=== PATIENT | male | born 1960 | race Caucasian/White ===

== ENCOUNTER 2019-05-19 20:38 | Emergency (ER) | payer OTHER, SELFPAY ==
[2019-05-19 20:41] VITALS: BP 149/88; PULSE 95; RESP 16; TEMP 36.6; O2SAT 97
--- NOTE | 2019-05-19 20:54 | ED.GENADUL_ITS ---
Discharge Plan Disposition Patient Disposition: HOME Condition: Stable Discharge Details Chief Complaint: RashLesion Clinical Impression: Tinea cruris Primary Care Provider: Samina Cruz ED Provider: Serjio Monae Home Meds and New Rx's Prescriptions: No Action No Known Home Meds RF: 0 Discharge Instructions Instructions: Lavon Itch (ED) Additional Instructions: start taking over the counter clotrimazole (Lotrimin) or terbinafine, follow dosing on packaging if not better in a week see your primary care provider return to the emergency department if you develop severe worsening pain, fevers or redness that is spreading down the leg Medical Decision Making 58 yo male who denies chronic medical problems comes in with several days of left groin irritation. He states he was driving for over a week and denies having symptoms like this in the past and denies fevers or severe pain. In the left groin area he has a mildly erythematous patch on proximal medial thigh near the groin fold that is about 2cm in diameter that is sharlply demarcated and partial celtral clearing. Appears to be tinea. Not warm to touch so doubt cellulitis. Advised f/u with pcp if not improving and return if worsening/signs of cellulitis develop Differential Diagnosis Differential Diagnosis: tinea cruris, skin irritation, cellulitis HPI General Mode of arrival: ambulatory . Date/Time Provider Initiated Documentation: 05/19/19 20:43 . Limitations to Documentation: no limitations . Information obtained by: patient . History of Present Illness 58 year old M presents to the emergency department with the chief complaint of left groin area discomfort/itching, described as moderate, Quality is described as other (itching), Patient started experiencing this day(s) (1) No relieving factors improve symptom(s), No exacerbating factors reported . Patient did receive the following treatments prior to arrival, none Related Data Home Medications Medication Instructions Recorded Confirmed Unknown [No Known Home Meds] 05/19/19 05/19/19 Allergies Allergy/AdvReac Type Severity Reaction Status Date / Time No Known Allergies Allergy Unverified 05/19/19 20:44 General Stated Complaint: RashLesion JAYLENE: 5 Review of Systems Review of Systems ROS Unobtainable: All systems reviewed & are unremarkable except as noted in HPI and below Constitutional Constitutional: Denies chills, Denies fever(s) and Denies weakness Cardiovascular Cardiovascular: Denies chest pain and Denies dyspnea Respiratory Respiratory: Denies dyspnea Gastrointestinal Gastrointestinal: Denies abdominal pain, Denies nausea and Denies vomiting Neurologic Neurologic: Denies weakness [facility] Social History Smoking/Tobacco Use Status: Never Alcohol Intake: current Alcohol Intake frequency: 0-2 drinks per day Alcohol type: beer Drug use: Never Substance use type: does not use Do you feel safe at home: Yes Do you feel safe in your relationship?: Yes Exam Const General: no acute distress Orientation: alert HENMT Head: normal to inspection Ears: external ears normal General nose exam: external nose normal Mouth: moist mucous membranes Eyes General: appearance normal, both eyes and all related structures Neck Neck: normal visual inspection Resp Effort & Inspection: normal respiratory effort and able to speak in complete sentences Cardio Rate: regular rate Skin General skin exam: elasticity normal Neuro General: alert and oriented x3 Extrem General: normal to inspection Psych Mental Status: mental status grossly normal Course Vital Signs Vital signs: Vital Signs Temperature 36.6 C 05/19/19 20:41 Pulse 95 H 05/19/19 20:41 Respiratory Rate 16 05/19/19 20:41 Blood Pressure 149/88 H 05/19/19 20:41 Pulse Oximetry 97 05/19/19 20:41 Temperature 36.6 C 05/19/19 20:41 Temperature Source Skin 05/19/19 20:41 Pulse 95 H 05/19/19 20:41 Respiratory Rate 16 05/19/19 20:41 Respiratory Effort 05/19/19 20:47 Blood Pressure 149/88 H 05/19/19 20:41 Blood Pressure Position Sitting 05/19/19 20:41 Pulse Oximetry 97 05/19/19 20:41 Oxygen Delivery Method Room Air 05/19/19 20:41 Oxygen Flow Rate 0 05/19/19 20:41 Pain Level 1 05/19/19 20:41
== END 2019-05-19 21:30 | disposition home or self-care (01) ==
LOC: ER 20:56
PROVIDERS: Emergency Provider Emergency Medicine; PCP Family Medicine
DX: B35.6 Tinea cruris (principal)
CPT/HCPCS: 99282

== ENCOUNTER 2020-03-07 13:22 | Emergency (ER) | payer OTHER, SELFPAY ==
[2020-03-07 13:39] VITALS: BP 163/84; PULSE 89; RESP 16; TEMP 36.4; O2SAT 98
--- NOTE | 2020-03-07 13:42 | ED.GENADUL_ITS ---
Discharge Plan Disposition Patient Disposition: HOME Condition: Good Discharge Details Chief Complaint: DentalOral Clinical Impression: Acute pulpitis, Pain, dental Primary Care Provider: Samina Cruz ED Provider: Ramiro Bell Home Meds and New Rx's Prescriptions: New penicillin V potassium 500 mg tablet 500 mg PO QID 10 Days Qty: 40 RF: 0 Discharge Instructions Instructions: Toothache (ED) Additional Instructions: At this time you have a mild infection of your right upper molar. You do need to see a dentist as soon as possible. Please take the antibiotic as directed. Please take 1000 mg of Tylenol every 6 hours and 800 mg of ibuprofen every 6 hours to help with pain. These are the maximum doses. If you notice any worsening of your symptoms, or any new symptoms such as vomiting, diarrhea, fever, chills, shortness of breath, chest pain, numbness, weakness, or fainting , please return immediately to the emergency department for reevaluation. Please follow up with your primary care provider as soon as possible for reassessment and reevaluation. As always, it was a pleasure participating in your medical care today. Referrals: Samina Cruz [Primary Care Provider] - Discharge Data Discharge Date/Time-TO BE ENTERED AT DEPARTURE: 03/07/20 13:48 Medical Decision Making Very pleasant 59-year-old male who denies any significant past medical history who presents today for evaluation of dental pain. Patient states he has a history of fillings, no over the last few days he has had pain in his right upper posterior molars. He was originally scheduled to see his dentist in December but because of coronavirus this got postponed. He has not yet been able to follow-up with a dentist. He denies fever or chills. Pain slightly relieved with Tylenol Motrin. He denies headache neck pain difficulty swallowing or other complaints. No evidence of periapical abscess, or other abnormalities. No evidence of Robert's angina. Suspect mild pulpitis. Patient will be trying to follow-up closely with his dentist. Will prescribe penicillin antibiotic for mild suspect infection. Patient refused dental block. Recommend continuation with Tylenol and Motrin at home. Discussed red flags for which to return. I have extensively reviewed the treatment plan and discharge instructions with the patient. I have addressed all patient concerns at this time. The patient was made aware of what symptoms to monitor for that would warrant a return to the emergency department. Discussed the plan with the patient, they demonstrate verbal understanding and agreement with our assessment and plan at this time. HPI General Date/Time Provider Initiated Documentation: 03/07/20 13:34 . HPI Narrative: Very pleasant 59-year-old male who denies any significant past medical history who presents today for evaluation of dental pain. Patient states he has a history of fillings, no over the last few days he has had pain in his right upper posterior molars. He was originally scheduled to see his dentist in December but because of coronavirus this got postponed. He has not yet been able to follow-up with a dentist. He denies fever or chills. Pain slightly relieved with Tylenol Motrin. He denies headache neck pain difficulty swallowing or other complaints. Related Data Home Medications Medication Instructions Recorded Confirmed penicillin V potassium 500 mg PO QID 10 Days #40 tab 03/07/20 Previous Rx's Medication Instructions Recorded penicillin V potassium 500 mg PO QID 10 Days #40 tab 03/07/20 Allergies Allergy/AdvReac Type Severity Reaction Status Date / Time No Known Allergies Allergy Unverified 05/19/19 20:44 General Stated Complaint: DentalOral JAYLENE: 4 Review of Systems All systems reviewed & are unremarkable except as noted in HPI and below PFS Social History Smoking/Tobacco Use Status: Never Alcohol Intake: current Alcohol Intake frequency: 0-2 drinks per day Alcohol type: beer Drug use: Never Substance use type: does not use Do you feel safe at home: Yes Do you feel safe in your relationship?: Yes Exam Narrative Exam Narrative: 1.Const: Well-nourished, Well-developed, appearing stated age 2.Eyes: PERRL, no conjunctival injection, and symmetrical lids. 3.ENT: Atraumatic external nose and ears. Moist MM. Neck: Symmetric, trachea midline, No thyromegaly. Mild dental caries and fillings throughout. No periapical abscess, no pain or tenderness over the teeth. 4.CVS: +S1/S2, No murmurs or gallops. Peripheral pulses 2+ and equal in all extremities. Brisk capillary refill in all extremities. 5.RESP: Unlabored respiratory effort. Clear to auscultation bilaterally. No wheezes rales or rhonchi 6.GI: Soft, Nontender/Nondistended, No hepatosplenomegaly. No guarding or rebound. 7.MSK: Normocephalic/Atraumatic, Extremities w/o deformity or ttp No cyanosis or clubbing, Normal movement of all extremities 8.Skin: Warm, Dry. No rashes or lesions. 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 Sensation grossly intact, no focal neurologic deficits. 10.Psych: (AAO) x3. Appropriate mood and affect Course Vital Signs Vital signs: Vital Signs Temperature 36.4 C L 03/07/20 13:39 Pulse 89 03/07/20 13:39 Respiratory Rate 16 03/07/20 13:39 Blood Pressure 163/84 H 03/07/20 13:39 Pulse Oximetry 98 03/07/20 13:39 Temperature 36.4 C L 03/07/20 13:39 Temperature Source Skin 03/07/20 13:39 Pulse 89 03/07/20 13:39 Respiratory Rate 16 03/07/20 13:39 Respiratory Effort Non-Labored 03/07/20 13:39 Blood Pressure 163/84 H 03/07/20 13:39 Blood Pressure Position Sitting 03/07/20 13:39 Pulse Oximetry 98 03/07/20 13:39 Oxygen Delivery Method Room Air 03/07/20 13:39 Oxygen Flow Rate 0 03/07/20 13:39
== END 2020-03-07 13:48 | disposition home or self-care (01) ==
PROVIDERS: Emergency Provider Student in an Organized Health Care Education/Training Program; PCP Family Medicine
DX: R68.84 Jaw pain (principal); K04.01 Reversible pulpitis
CPT/HCPCS: 99283

== ENCOUNTER 2020-07-31 21:35 | Outpatient (REF) | payer OTHER, SELFPAY ==
[2020-07-31 21:10] LABS: ALT 40 U/L (16-63); AST 20 U/L (15-37); Albumin 4.2 g/dL (3.4-5.0); Alkaline Phosphatase 74 U/L (46-116); Anion Gap 7.1 mmol/L (3-11); BUN 20 mg/dL (7-18); Bilirubin, Total 0.5 mg/dL (0.2-1.0); CO2 26.9 mmol/L (21.0-32.0); Calcium 8.6 mg/dL (8.5-10.1); Calculated LDL 89 mg/dL (<100); Chloride 107 mmol/L (98-107); Cholesterol 156 mg/dL (<200); Glucose 99 mg/dL (74-106); HDL Cholesterol 55 mg/dL (40-60); Potassium 4.3 mmol/L (3.5-5.1); Sodium 141 mmol/L (136-145); Total Protein 6.6 g/dL (6.4-8.2); Triglyceride 64 mg/dL (<150)
[2020-07-31 21:16] LABS: Hemoglobin A1C 5.5 % (<5.7)
[2020-08-03 10:04] LABS: PSA, Screening 0.7 ng/mL (0.0-4.5)
== END 2020-07-31 21:55 ==
LOC: NCHCN 21:35
PROVIDERS: PCP Family Medicine; Visit Provider Urology
DX: Z00.00 Encounter for general adult medical examination without abnormal findings (principal); R73.03 Prediabetes; Z13.220 Encounter for screening for lipoid disorders; Z12.5 Encounter for screening for malignant neoplasm of prostate
CPT/HCPCS: 80053; 80061; 84153; 83036

== ENCOUNTER 2020-10-26 08:12 | Day surgery (SDC) | payer OTHER, SELFPAY ==
--- NOTE | 2020-10-26 06:36 | COLE_ITS ---
Date of service: 10/26/20 Time of Service: 09:41 Colonoscopy Report Date of procedure: 10/26/20 Pre-op diagnosis general: Colon Cancer Screening Post-op diagnosis procedure note: same Procedure: Colonoscopy Surgeon: Luisa Lazcano Anesthesia proc note operative: other (General/ASA 2/Fernando Tirado, DANIELITO) Estimated blood loss (mL): 0 Pathology: none sent Complications: None Disposition: same day Indications: The patient is here for Colonoscopy pre-op. His last screening was in 2009 and was unremarkable. He has no family history of colon cancer. He has not had any bowel habit changes. -Discussed colonoscopy bowel prep as well as the procedure. Discussed possible complications of the procedure to include bleeding, pain, perforation, missed small lesion/polyp, sore throat, aspiration and adverse reaction to the medicat ions. Questions were answered to patient?s satisfaction. No guarantees were implied or given. Prep: Miralax/Dulcolax Procedure Start Time: 09:15 Procedure End Time: 09:38 Retraction Time: 17 minutes Findings: Normal colon Procedure Description: After informed consent was obtained the patient was taken to the procedure room and placed in a left decubitous position. Monitors were applied and a time out was done. The patients name, date of , procedure, allergies to medications and metal in their body was reviewed. The patient was then sedated. Once sedated and comfortable a rectal exam was done. External exam was normal. Internal exam revealed a normal sphincter tone and no palpable masses. The prostate felt smooth and slightly enlarged. The scope was then introduced and retro-flexed. No internal hemorrhoids, polyps or masses were identified on retro-flexion. The scope was then advanced to the cecum without difficulty. The ileocecal vlave and appendiceal orifice were identified. The prep was adequate. The scope was then slowly retracted over 17 minutes back into the rectum. There were no polyps. There was no diverticulosis noted. The scope was removed and the patient was woken up and taken back to Same day surgery in stable condition. The patient tolerated the procedure well and there were no immediate complications. Follow up: The patient should follow up in 10 years unless they develop changes in bowel habits or other new gastrointestinal complaints.
--- NOTE | 2020-10-26 06:37 | W.PM.DSUDISC ---
Discharge Plan Disposition Patient Disposition: HOME Condition: Good Discharge Details Reason For Visit: Colonoscopy Attending Provider: Luisa Lazcano Primary Care Provider: Samina Cruz Home Meds and New Rx's Prescriptions: Continued cholecalciferol (vitamin D3) 25 mcg (1,000 unit) capsule 25 mcg PO DAILY RF: 0 Discontinued polyethylene glycol 3350 17 gram/dose powder 238 g PO ONCE Qty: 238 RF: 0 bisacodyl [Dulcolax (bisacodyl)] 5 mg tablet,delayed release (DR/EC) 5 mg PO ONCE Qty: 4 RF: 0 Discharge Instructions Additional Instructions: Findings: Normal colonoscopy Follow up: 10 years Please call if you develop: fevers >101.5 Nausea or Vomiting Abdominal pain that is not transient DAY SURGERY UNIT POST ENDOSCOPY INSTRUCTIONS 1. Because there will be medication in your system for the next 24 hours, you may feel a little sleepy. Your coordination will be affected. Therefore: a. Do not drive or operate dangerous equipment for 24 hours. b. Do not drink alcohol beverages for 24 hours (not even beer). c. Plan to go home and rest for the day. 2. Generally there are no restrictions on your activity after a day or so has gone by, but you may feel a bit fatigued for a few days. 3 After you arrive home you may have a light meal and return to a normal diet as you can tolerate it without feeling sick to your stomach. 4. After surgery, you may feel pain or discomfort. This should be only transient, but if it persists please contact your doctor. 5. If there are any questions regarding the findings of your procedure, please feel free to contact your doctor. 6. If you are unable to contact your doctor with a problem, contact the hospital at [phone]. 7. Continue all your regular medications unless directed otherwise. I understand the above instructions and have no questions. Signature of Patient or Responsible Adult Escort Date/Time Name of Responsible Adult Escort Signature of Nurse Date/Time Activity:: Activity as Tolerated Diet:: As Tolerated Discharge Orders Discharge Orders: Discharge Order (Routine); Ordered 10/26/20 Ordered By: Luisa Lazcano
[2020-10-26 08:32] VITALS: BP 122/84; PULSE 104; RESP 16; TEMP 36.1; O2SAT 97
[2020-10-26] MEDS: Lactated Ringers 1,000 ML 80 ML IV (08:47)
[2020-10-26 10:11] VITALS: BP 117/78; PULSE 77; RESP 16; TEMP 36; O2SAT 98
== END 2020-10-26 10:25 | disposition home or self-care (01) ==
PROVIDERS: PCP Family Medicine; Visit Provider Surgery
PROC: 0DJD8ZZ Inspection of Lower Intestinal Tract, Via Natural or Artificial Opening Endoscopic (ICD-10-PCS; CPT 45378; principal; 2020-10-26 09:30)
DX: Z12.11 Encounter for screening for malignant neoplasm of colon (principal)
CPT/HCPCS: 45378; J2001

== ENCOUNTER 2022-12-08 09:24 | Outpatient (REF) | payer OTHER, SELFPAY ==
[2022-12-08 14:43] LABS: ALT 33 U/L (16-63); AST 18 U/L (15-37); Albumin 4.1 g/dL (3.4-5.0); Alkaline Phosphatase 67 U/L (46-116); Anion Gap 5.4 mmol/L (3-11); BUN 17 mg/dL (7-18); Bilirubin, Total 0.5 mg/dL (0.2-1.0); CO2 29.6 mmol/L (21.0-32.0); Calcium 9.1 mg/dL (8.5-10.1); Calculated LDL 132 mg/dL (<100); Chloride 106 mmol/L (98-107); Cholesterol 210 mg/dL (<200); Estimated GFR 84.57 (mL/min/1.73m2); Glucose 121 mg/dL (74-106); HDL Cholesterol 65 mg/dL (40-60); Potassium 4.9 mmol/L (3.5-5.1); Sodium 141 mmol/L (136-145); Total Protein 6.9 g/dL (6.4-8.2); Triglyceride 69 mg/dL (<150)
[2022-12-08 14:46] LABS: Hemoglobin A1C 5.6 % (<5.7)
[2022-12-08 15:49] LABS: Vitamin D 25 Total 19.4 ng/mL (30-100)
== END 2022-12-08 09:25 | disposition home or self-care (01) ==
LOC: NCHCN 09:24
PROVIDERS: PCP Family Medicine; Visit Provider Family Medicine
DX: Z00.00 Encounter for general adult medical examination without abnormal findings (principal); R73.03 Prediabetes; Z13.220 Encounter for screening for lipoid disorders; E55.9 Vitamin D deficiency, unspecified
CPT/HCPCS: 80053; 80061; 82306; 83036

== ENCOUNTER 2023-12-11 10:10 | Outpatient (REF) | payer OTHER, SELFPAY ==
[2023-12-11 15:49] LABS: ALT 41 U/L (16-63); AST 17 U/L (15-37); Albumin 4.2 g/dL (3.4-5.0); Alkaline Phosphatase 62 U/L (46-116); Anion Gap 7.3 mmol/L (3-11); BUN 15 mg/dL (7-18); Bilirubin, Total 0.6 mg/dL (0.2-1.0); CO2 30.7 mmol/L (21.0-32.0); CREATININE 0.9 mg/dL (0.70-1.30); Calcium 9.2 mg/dL (8.5-10.1); Calculated LDL 156 mg/dL (<100); Chloride 106 mmol/L (98-107); Cholesterol 227 mg/dL (<200); Estimated GFR 95.37 (mL/min/1.73m2); Glucose 106 mg/dL (74-106); HDL Cholesterol 54 mg/dL (40-60); Sodium 144 mmol/L (136-145); Total Protein 6.9 g/dL (6.4-8.2); Triglyceride 87 mg/dL (<150)
[2023-12-11 17:20] LABS: Vitamin D 25 Total 39.8 ng/mL (30-100)
== END 2023-12-11 10:11 | disposition home or self-care (01) ==
LOC: NCHCN 10:10
PROVIDERS: PCP Family Medicine; Visit Provider Family Medicine
DX: Z00.00 Encounter for general adult medical examination without abnormal findings (principal)
CPT/HCPCS: 80053; 80061; 82306

== ENCOUNTER 2025-04-30 11:07 | Outpatient (REF) | payer MEDICARE, BC, SELFPAY ==
[2025-04-30 14:59] LABS: ALT 26 U/L (16-63); AST 15 U/L (15-37); Albumin 4.1 g/dL (3.4-5.0); Alkaline Phosphatase 62 U/L (46-116); Anion Gap 4.1 mmol/L (3-11); BUN 13 mg/dL (7-18); Bilirubin, Total 0.8 mg/dL (0.2-1.0); CO2 32.9 mmol/L (21.0-32.0); Calcium 9.2 mg/dL (8.5-10.1); Calculated LDL 136 mg/dL (<100); Chloride 106 mmol/L (98-107); Cholesterol 201 mg/dL (<200); Estimated GFR 94.78 (mL/min/1.73m2); Glucose 105 mg/dL (74-106); HDL Cholesterol 49 mg/dL (>or=40); Potassium 4.1 mmol/L (3.5-5.1); Sodium 143 mmol/L (136-145); Total Protein 6.6 g/dL (6.4-8.2); Triglyceride 83 mg/dL (<150)
== END 2025-04-30 11:08 | disposition home or self-care (01) ==
LOC: NCHCN 11:07
PROVIDERS: PCP Family Medicine; Visit Provider Family Medicine
DX: E78.5 Hyperlipidemia, unspecified (principal)
CPT/HCPCS: 80053; 80061